=== PATIENT | female | born 1970 | race Caucasian/White ===

== ENCOUNTER 2017-10-29 09:12 | Emergency (ER) | payer OTHER ==
[~2017-10-29] VITALS: Ht 172.7 cm; Wt 72.1 kg
[~2017-10-29 09:12] MED LIST: ATIVAN1 MG PO; Alprazolam 1mg PO; BISACODYL SUPP10 MG RE; CARAFATE 1 GM TA1 G1 PO; CIPROFLOXACIN500 M1 PO; COLACE 100 MG100 MG PO; CYMBALTA60 MG PO; DILAUDID8 MG PO; DURAGESIC1 EAC2 PAD; ERY-TAB250 MG PO; FENTANYL PA50 MCG/HR TRANSDERM; FENTANYL PATCH75 MCG TP; FLAGYL500 MG PO; FLEXERIL PO; HYDROCODONE-APA1 TA1 PO; MIRALAX17 GM PO; MIRALAX255 GM PO; NICOTINE PATCH1 EAC1 TD; ONDANSETRON ODT8 MG PO; PAXIL10 MG PO; PAXIL30 MG PO; PAXIL40 MG PO; PHENERGAN 25 MG25 M1 PO; PRILOSEC 20 MG20 MG PO; PROTONIX40 M2 PO; REGLAN 10 MG TA10 MG PO; VICODIN 5-3001 EACH PO; WELLBUTRIN SR150 MG PO; ZOFRAN8 MG PO; lactulose
[2017-10-29 10:09] LABS: ABSOLUTE BASOPHILS 0.1 thou/uL (0.0-0.2); ABSOLUTE EOSINOPHILS 0.2 thou/uL (0.0-0.7); ABSOLUTE LYMPHOCYTES 1.2 thou/uL (0.8-5.3); ABSOLUTE MONOCYTES 0.6 thou/uL (0.0-1.2); ABSOLUTE NEUTROPHILS 6.4 thou/uL (1.6-8.1); BASOPHILS 0.7 %; EOSINOPHILS 2.9 %; HEMATOCRIT 44.3 % (37.0-47.0); LYMPHOCYTES 14.3 %; MCHC 33.9 g/dL (28.0-37.0); MCV 88.6 fL (80.0-100.0); MONOCYTES 7.3 %; MPV 6.9 fl. (7.2-11.1); NUCLEATED RBCS 0 /100WBC; PLATELET COUNT* 326 thou/uL (150-400); POLYS 74.8 %; RBC 4.99 mil/uL (4.20-5.00); RDW-CV 13.7 % (10.5-14.5); WBC 8.6 thou/uL (4.0-11.0)
[2017-10-29 10:09] LABS: URINE BILIRUBIN NEGATIVE (Negative); URINE BLOOD NEGATIVE (Negative); URINE CLARITY CLEAR; URINE COLOR YELLOW; URINE GLUCOSE-RANDOM NEGATIVE (Negative); URINE KETONES NEGATIVE (Negative); URINE LEUKOCYTES-REFLEX NEGATIVE (Negative); URINE NITRITE-REFLEX NEGATIVE (Negative); URINE PROTEIN NEGATIVE (Negative); URINE SPECIFIC GRAVITY 1.025 (1.005-1.030)
[2017-10-29 10:14] LABS: ANION GAP 4 mmol/L (7-16); BUN 13 mg/dL (7-18); CALCIUM 8.8 mg/dL (8.5-10.1); CHLORIDE 105 mmol/L (98-107); CO2 31 mmol/L (21-32); CREATININE 0.6 mg/dL (0.6-1.3); GLUCOSE 96 mg/dL (70-99); POTASSIUM 4.6 mmol/L (3.5-5.1); SODIUM 140 mmol/L (136-145)
[2017-10-29 10:21] LABS: ALBUMIN 3.4 g/dL (3.4-5.0); ALKALINE PHOSPHATASE 87 U/L (46-116); LIPASE 63 U/L (73-393); SGOT 23 U/L (15-37); SGPT 13 U/L (30-65); TOTAL BILIRUBIN 0.4 mg/dL (<0.1-1.0); TOTAL PROTEIN 6.9 g/dL (6.4-8.2); TROPONIN-I LEVEL <0.06 ng/mL (<0.06)
[2017-10-29 12:47] VITALS: BP 110/75
--- NOTE | 2017-10-29 15:38 | EKG ---
[place] [address] ELECTROCARDIOGRAM REPORT Name: TREMAYNE SHARPE Room: [facility]#: [id number] Admission: 10/29/17 Attend Phys: Discharge: 10/29/17 Date of : 68 Report #: [id number] THIS REPORT FOR: //name// [facility] ED Test Date: 2017-10-29 Test Time: 10:15:52 Pat Name: TREMAYNE SHARPE Department: Room: Gender: F Field Naturalist: Yong PAZ : 1970 Requested By: Liya Cobos Order Number: [id number] MD: Clifton Sanches Measurements Intervals [place] Rate: 80 P: 83 WI: 177 QRS: 73 QRSD: 102 T: 41 QT: 375 QTc: 433 Interpretive Statements Sinus rhythm Low voltage, precordial leads Artifact in lead(s) I,aVR,V1,V2,V5 and baseline wander in lead(s) V1 Compared to ECG 07/29/2013 12:49:27 Low QRS voltage now present Electronically Signed On 10-29-2017 15:38:08 CDT by Clifton Sanches [email or web address] <ELECTRONICALLY SIGNED> By: Clifton Sanches MD, [facility] 10/29/17 [id number] Clifton Sanches MD, [facility] /EPI
== END 2017-10-29 12:49 | disposition home or self-care (01) ==
LOC: M.ERS 09:12
PROVIDERS: Personal Emergency Response Attendant
DX: R10.11 Right upper quadrant pain (principal); F17.210 Nicotine dependence, cigarettes, uncomplicated; Z98.890 Other specified postprocedural states; Z90.49 Acquired absence of other specified parts of digestive tract; Z88.1 Allergy status to other antibiotic agents; Z88.5 Allergy status to narcotic agent